=== PATIENT | female | born 1985 | race Caucasian/White ===

== ENCOUNTER 2020-11-05 14:07 | Outpatient (CLI) | payer OTHER ==
[~2020-11-05 14:07] MED LIST: KETO10TA2 PO
== END 2020-11-05 17:50 | disposition home or self-care (01) ==
LOC: PRENATAL 14:07
PROVIDERS: ATTEND Obstetrics & Gynecology Maternal & Fetal Medicine
DX: O26.891 Other specified pregnancy related conditions, first trimester (principal); O26.851 Spotting complicating pregnancy, first trimester; O36.80X1 Pregnancy with inconclusive fetal viability, fetus 1; Z36.89 Encounter for other specified antenatal screening; Z3A.08 8 weeks gestation of pregnancy

== ENCOUNTER 2021-06-18 08:25 | Outpatient (CLI) | payer OTHER | END 2021-06-18 09:35 | disposition home or self-care (01) | LOC: PRENATAL 08:25 | PROVIDERS: ATTEND Obstetrics & Gynecology Maternal & Fetal Medicine | DX: O36.80X0 Pregnancy with inconclusive fetal viability, not applicable or unspecified (principal); O09.521 Supervision of elderly multigravida, first trimester; Z3A.13 13 weeks gestation of pregnancy ==

== ENCOUNTER 2021-08-05 07:54 | Outpatient (CLI) | payer OTHER | END 2021-08-05 08:54 | disposition home or self-care (01) | LOC: PRENATAL 07:54 | PROVIDERS: ATTEND Obstetrics & Gynecology Maternal & Fetal Medicine | DX: O35.0XX0 Maternal care for (suspected) central nervous system malformation in fetus, not applicable or unspecified (principal); O09.529 Supervision of elderly multigravida, unspecified trimester; Z3A.20 20 weeks gestation of pregnancy ==

== ENCOUNTER 2021-10-28 08:57 | Outpatient (CLI) | payer OTHER | END 2021-10-28 10:00 | disposition home or self-care (01) | LOC: PRENATAL 08:57 | PROVIDERS: ATTEND Obstetrics & Gynecology Maternal & Fetal Medicine | DX: O35.0XX0 Maternal care for (suspected) central nervous system malformation in fetus, not applicable or unspecified (principal); O09.529 Supervision of elderly multigravida, unspecified trimester; Z3A.32 32 weeks gestation of pregnancy ==

== ENCOUNTER 2021-11-29 11:36 | Inpatient (IN) | payer OTHER ==
[~2021-11-29] VITALS: Ht 162.6 cm; Wt 88.0 kg
[2021-11-29] MEDS ORDERED: PRENATAL TABLE1 EAC3 (13:12)
[2021-11-29] MEDS ORDERED: CHILDREN'S ASPI81 MG (13:12)
== END 2021-12-03 17:39 | disposition home or self-care (01) | DRG 806 ==
LOC: LDR 11:36 → OB/GYN 12-01 10:19
PROVIDERS: ADMIT Obstetrics & Gynecology; ATTEND Obstetrics & Gynecology
PROC: BY4FZZZ Ultrasonography of Third Trimester, Single Fetus (ICD-10-PCS; 2021-11-29)
PROC: 4A1HXCZ Monitoring of Products of Conception, Cardiac Rate, External Approach (ICD-10-PCS; 2021-11-29)
PROC: 10E0XZZ Delivery of Products of Conception, External Approach (ICD-10-PCS; principal; 2021-12-01)
PROC: 0HQ9XZZ Repair Perineum Skin, External Approach (ICD-10-PCS; 2021-12-01)
DX: O70.1 Second degree perineal laceration during delivery (principal); O41.03X0 Oligohydramnios, third trimester, not applicable or unspecified; Z37.0 Single live birth; O26.843 Uterine size-date discrepancy, third trimester; O36.8130 Decreased fetal movements, third trimester, not applicable or unspecified; Z3A.37 37 weeks gestation of pregnancy; Z20.822 Contact with and (suspected) exposure to COVID-19